=== PATIENT | female | born 1985 | race Caucasian/White ===

== ENCOUNTER 2016-10-15 12:36 | Outpatient (CLI) | payer OTHER ==
--- NOTE | 2016-10-15 13:34 | Non Stress Test Report ---
Non Stress Test Datetime Report Generated by CPN: 10/15/2016 13:29 DEMOGRAPHIC EGA NST: 35.0 INDICATION Indication for Study: Ordered by Provider Indication for Study (NST) Other: Repeat from office for methadone MONITORING Monitor Explained: Monitor Explained; Test Explained; Patient Verbalized Understanding Time on Monitor: 10/15/2016 12:53 Time off Monitor: 10/15/2016 13:25 NST Duration: 32 NST INTERVENTIONS NST Interventions: Reposition Patient Physician Notified NST: C TANG, CNM REVIEWED STRIP BABY A: [id number] BABY A Movement : Present Contraction Frequency : 0 FHR Baseline : 120 Accelerations : 15X15 Accelerations : 15X15 Decelerations : None Decelerations : None Variability : Moderate 6-25bpm Variability : Moderate 6-25bpm NST Review: Meets Criteria for Reactive NST NST Review and Verified By : FARIHA SCHUSTER RN NSEdgar Results: Reactive NST Results: Reactive NST REPORT Report Trigger: Send Report
== END 2016-10-15 13:27 | disposition home or self-care (01) ==
LOC: LC 12:36
PROVIDERS: ATTEND Obstetrics & Gynecology
PROC: 4A1HXCZ Monitoring of Products of Conception, Cardiac Rate, External Approach (ICD-10-PCS; principal; 2016-10-15)
DX: Z34.93 Encounter for supervision of normal pregnancy, unspecified, third trimester (principal); Z36 Encounter for antenatal screening of mother; Z3A.35 35 weeks gestation of pregnancy
CPT/HCPCS: 59025

== ENCOUNTER 2016-10-28 17:54 | Outpatient (CLI) | payer OTHER | END 2016-10-28 18:37 | disposition home or self-care (01) | LOC: LC 17:54 | PROVIDERS: ATTEND Obstetrics & Gynecology | PROC: 4A1HXCZ Monitoring of Products of Conception, Cardiac Rate, External Approach (ICD-10-PCS; principal; 2016-10-28) | DX: O99.323 Drug use complicating pregnancy, third trimester (principal); F11.90 Opioid use, unspecified, uncomplicated; Z3A.36 36 weeks gestation of pregnancy | CPT/HCPCS: 59025 ==

== ENCOUNTER 2016-11-12 07:45 | Inpatient (IN) | payer OTHER ==
[2016-11-11 11:38] LABS: ABSOLUTE BASOPHILS # (AUTO) 0.1 10^3/uL (0.0-0.2); ABSOLUTE EOSINOPHILS # (AUTO) 0.1 10^3/uL (0.0-0.6); ABSOLUTE LYMPHOCYTES (AUTO) 2.6 10^3/uL (0.5-4.7); ABSOLUTE MONOCYTES (AUTO) 0.8 10^3/uL (0.1-1.4); BASOPHILS % (AUTO) 0.6 % (0-2); EOSINOPHILS % (AUTO) 1.1 % (0-6); HEMATOCRIT 36.2 % (36.0-47.0); HEMOGLOBIN 12.1 g/dL (12.0-15.5); HGB HCT DIFFERENCE 0.1; LYMPHOCYTES % (AUTO) 18.9 % (13-45); MEAN CORPUSCULAR HEMOGLOBIN 26.7 pg (27.0-33.4); MEAN CORPUSCULAR HGB CONC 33.3 g/dL (32.0-36.0); MEAN CORPUSCULAR VOLUME 80 fl (80-97); MONOCYTES % (AUTO) 5.9 % (3-13); RED BLOOD COUNT 4.52 10^6/uL (3.72-5.28); RED CELL DISTRIBUTION WIDTH 13.6 % (11.5-14.0); SEGMENTED NEUTROPHILS % (AUTO) 73.5 % (42-78); WHITE BLOOD COUNT 13.6 10^3/uL (4.0-10.5)
[2016-11-11 11:42] LABS: APPEARANCE,URINE CLEAR; BILIRUBIN,URINE NEGATIVE (NEGATIVE); GLUCOSE, URINE NEGATIVE (NEGATIVE); KETONES,URINE NEGATIVE (NEGATIVE); LEUKOCYTE ESTERASE,URINE TRACE (NEGATIVE); NITRITE,URINE NEGATIVE (NEGATIVE); PROTEIN,URINE NEGATIVE (NEGATIVE); URINE SPECIFIC GRAVITY 1.018; UROBILINOGEN,URINE NEGATIVE mg/dL (<2.0)
[2016-11-11 11:57] LABS: URINE BARBITURATES SCREEN NEGATIVE; URINE OPIATES LOW NEGATIVE; URINE PHENCYCLIDINE SCREEN NEGATIVE
[2016-11-11 13:34] LABS: URINE METHADONE SCREEN UNCONFIRMED POSITIVE
[~2016-11-12 07:45] MED LIST: CEFAZOLIN 1 GM/D5W RTU 1 GM/50 ML RTUPB IV PRN; LACTATED RINGERS 1000 ML IV PRN; LIDOCAINE 0.5% INJ-PF (5 MG/ML) 50 ML SDV SUBCUT PRN
[2016-11-12] MEDS ORDERED: OXYTOCIN 10 UNIT/ML VIAL ONE (09:00)
[2016-11-12] MEDS ORDERED: RINGERS SOLUTION,LACTATED 1,000 ML IV PRN ×2 (09:40→12:35)
[2016-11-12] MEDS ORDERED: CEFAZOLIN 1 GM/D5W RTU 1 GM/50 ML RTUPB IV PRN (10:00)
[2016-11-12] MEDS ORDERED: CLINDAMYCIN 900 MG/D5W RTU 50 ML IV ONE (10:02)
[2016-11-12] MEDS ORDERED: RINGERS SOLUTION,LACTATED 1,000 ML IV ONE (10:30)
[2016-11-12] MEDS ORDERED: FENTANYL CITRATE INJ/PF 100 MCG/2 ML AMPUL IV PRN ×3 (10:34)
[2016-11-12] MEDS ORDERED: MEPERIDINE HCL/PF INJ 25 MG/1 ML DISP.SYRIN IV PRN (10:34)
[2016-11-12] MEDS ORDERED: OXYCODONE-ACETAMINOPHEN 5-325 MG TABLET PO PRN ×3 (10:34→12:11)
[2016-11-12] MEDS ORDERED: PROMETHAZINE HCL INJ 25 MG/1 ML VIAL IV PRN (10:34)
[2016-11-12] MEDS ORDERED: DIPHENHYDRAMINE HCL 50 MG/ML VIAL IV PRN (10:34)
[2016-11-12] MEDS ORDERED: MORPHINE SULFATE 10 MG/ML INJ IV PRN (10:34)
[2016-11-12] MEDS ORDERED: ACETAMINOPHEN 100 ML IV ONE (11:35)
[2016-11-12] MEDS: FENTANYL CITRATE INJ/PF 100 MCG/2 ML AMPUL ONE ×2 (11:47→11:53)
[2016-11-12] MEDS ORDERED: KETOROLAC TROMETHAMINE INJ/PF 30 MG/1 ML SDV ONE (11:55)
[2016-11-12] MEDS ORDERED: ACETAMINOPHEN 100 ML IV SCH (12:00)
[2016-11-12] MEDS ORDERED: ACETAMINOPHEN 325 MG TABLET PO PRN (12:11)
[2016-11-12] MEDS ORDERED: OXYTOCIN/NORMAL SALINE 20 UNIT/1,000 ML RTUINJ INJ PRN (12:11)
[2016-11-12] MEDS ORDERED: MEASLES,MUMPS&RUBELLA VACC/PF 0.5 ML VIAL SUBCUT PRN (12:11)
[2016-11-12] MEDS ORDERED: SIMETHICONE 80 MG TAB.CHEW PO PRN (12:11)
[2016-11-12] MEDS ORDERED: PROMETHAZINE HCL INJ 25 MG/1 ML VIAL IM PRN (12:11)
[2016-11-12] MEDS ORDERED: DIPH/PERTUSS(ACELL)/TETANUS VAC/PF 0.5 ML SYR (>=10YO) IM PRN (12:11)
[2016-11-12] MEDS: HYDROMORPHONE HCL INJ/PF 2 MG/ML AMPULE IV PRN ×3 (13:53→22:15)
[2016-11-12] MEDS: DOCUSATE SODIUM 100 MG CAPSULE PO SCH (18:44)
[2016-11-12] MEDS: KETOROLAC TROMETHAMINE INJ/PF 30 MG/1 ML SDV IV SCH (20:12)
[2016-11-13] MEDS: OXYCODONE-ACETAMINOPHEN 5-325 MG TABLET PO PRN ×2 (02:42→17:31)
[2016-11-13] MEDS: KETOROLAC TROMETHAMINE INJ/PF 30 MG/1 ML SDV IV SCH (03:44)
[2016-11-13 06:16] LABS: HEMATOCRIT 32.8 % (36.0-47.0); HEMOGLOBIN 11.2 g/dL (12.0-15.5); HGB HCT DIFFERENCE 0.8; MEAN CORPUSCULAR HEMOGLOBIN 27.4 pg (27.0-33.4); MEAN CORPUSCULAR VOLUME 80 fl (80-97); RED BLOOD COUNT 4.08 10^6/uL (3.72-5.28); RED CELL DISTRIBUTION WIDTH 13.6 % (11.5-14.0); WHITE BLOOD COUNT 7.3 10^3/uL (4.0-10.5)
[2016-11-13] MEDS: METHADONE 10 MG/ML PO SCH (08:04)
[2016-11-13] MEDS ORDERED: PRENATAL VITAMIN W-O CA NO5/FE FUMARATE/FA CAPSULE PO SCH (10:00)
--- NOTE | 2016-11-13 11:48 | PDOC PROGRESS REPORT ---
Subjective-OB Subjective: Post Delivery Day: 31 year old. Denies any needs at this time. Pt doing well, no concerns. She reports light bleeding, regular diet, +flatus and voiding without difficulty. Physical Exam (OB) Vital Signs: Temp Pulse Resp BP Pulse Ox 98.1 F 87 17 104/54 L 100 11/13/16 07:52 11/13/16 07:52 11/13/16 07:52 11/13/16 07:52 11/13/16 07:52 Intake & Output 11/12/16 11/13/16 11/14/16 06:59 06:59 06:59 Intake Total 3000 Output Total 2200 Balance 800 Weight 90.72 kg 86.183 kg - Dressing Removed: Yes Incision: Dressing, Well Approximated Closure Type: medipore - Lochia Lochia Amount: Scant < 10 ml Lochia Color: Rubra/Red - Abdomen Description: Tender, Soft Hernia Present: No Fundal Description: Firm, Midline Fundal Height: u/u - u/2 Objective-Diagnostic Laboratory: 11/13/16 06:03 11/13/16 06:03 WBC 7.3 RBC 4.08 Hgb 11.2 L Hct 32.8 L MCV 80 MCH 27.4 MCHC 34.0 RDW 13.6 Plt Count 244 Assessment and Plan(PN) - Assessment and Plan (1) delivery delivered Is this a current diagnosis for this admission?: Yes - Time Spent with Patient Time with patient: Less than 15 minutes Medications reviewed and adjusted accordingly: Yes - Disposition Anticipated Discharge: Home Within: within 24 hours
[2016-11-13] MEDS: IBUPROFEN 800 MG TABLET PO SCH ×2 (14:36→21:18)
[2016-11-13] MEDS: DOCUSATE SODIUM 100 MG CAPSULE PO SCH (17:31)
[2016-11-14] MEDS: IBUPROFEN 800 MG TABLET PO SCH ×2 (02:02→09:41)
[2016-11-14] MEDS: OXYCODONE-ACETAMINOPHEN 5-325 MG TABLET PO PRN (05:34)
[2016-11-14 08:04] VITALS: BP 92/52
[2016-11-14] MEDS: METHADONE 10 MG/ML PO SCH (08:39)
[2016-11-14] MEDS: DOCUSATE SODIUM 100 MG CAPSULE PO SCH (09:40)
--- NOTE | 2016-11-14 11:25 | PDOC PROGRESS REPORT ---
Subjective-OB Subjective: Post Delivery Day: 31 year old. Denies any needs at this time. Ready to go home. Physical Exam (OB) Vital Signs: Temp Pulse Resp BP Pulse Ox 97.8 F 59 L 16 92/52 L 98 11/14/16 08:09 11/14/16 08:09 11/14/16 08:09 11/14/16 08:09 11/14/16 08:09 Intake & Output 11/13/16 11/14/16 11/15/16 06:59 06:59 06:59 Intake Total 3000 Output Total 2200 Balance 800 Weight 86.183 kg - Dressing Removed: No Incision: Dressing Closure Type: medipore - Lochia Lochia Amount: Scant < 10 ml Lochia Color: Rubra/Red - Abdomen Description: Soft, Round Hernia Present: No Bowel Sounds: Normoactive Flatus Presence: Present Stool: Yes Fundal Description: Firm, Midline Fundal Height: u/u - u/2 Objective-Diagnostic Laboratory: 11/13/16 06:03 Assessment and Plan(PN) - Time Spent with Patient Medications reviewed and adjusted accordingly: Yes - Disposition Anticipated Discharge: Home
--- NOTE | 2016-11-14 11:34 | PDOC DISCHARGE SUMMARY ---
Final Diagnosis Discharge Date: 11/14/16 - Final Diagnosis (1) Abnormal AFP screen Is this a current diagnosis for this admission?: Yes (2) delivery delivered Is this a current diagnosis for this admission?: Yes (3) Methadone dependence Is this a current diagnosis for this admission?: Yes (4) Is this a current diagnosis for this admission?: Yes (5) Smoker Is this a current diagnosis for this admission?: Yes Discharge Data - Discharge Medication Home Medications: Methadone HCl [Methadone Oral Soln 1Mg/ml 30 ml Bottle] 117 mg PO DAILY Pnv No.122/Iron/Folic Acid [ Multi Tablet] 1 tab PO DAILY 10/28/16 Ibuprofen [Motrin 800 mg Tablet] 800 mg PO Q6A #30 tablet 11/14/16 Gestational Age: 39 wks Reason(s) for Admission: Ceasarean Section-Repeat Procedures: Ultrasound Intrapartum Procedure(s): : Low Cervical, Transverse - [place] Data Baby 1 Male at 1 minute: 5 at 5 minutes: 9 Weight: 2.835 kg Home with Mother: Yes Complications: No - Diagnosis Test Laboratory: Temp Pulse Resp BP Pulse Ox 97.8 F 59 L 16 92/52 L 98 11/14/16 08:09 11/14/16 08:09 11/14/16 08:09 11/14/16 08:09 11/14/16 08:09 11/11/16 11/11/16 11/13/16 10:30 10:40 06:03 RBC 4.52 4.08 Hgb 12.1 11.2 L Hct 36.2 32.8 L Urine Opiates Screen NEGATIVE - Discharge information/Instructions Discharge Activity: Activity As Tolerated, Balance Activity w/Rest, No Lifting Over 10 Pounds, No Lifting/Push/Pulling, Non-Ambulatory Child, Pelvic Rest, Slowly Increase Activity Discharge Diet: Regular Disposition: HOME, SELF-CARE Follow up with: [facility] in: 1, Weeks
--- NOTE | 2016-12-31 09:30 | OPERATIVE REPORT E ---
Operative Report NAME: RAN VALENZUELA : 1985 AGE: 31Y DATE OF SURGERY: 11/12/2016 ROOM: 226 PREOPERATIVE DIAGNOSES: 1. A 39 week intrauterine . 2. History of section x2. POSTOPERATIVE DIAGNOSES: 1. A 39 week intrauterine . 2. History of section x2. OPERATION: Repeat low transverse section. SURGEON: Alan Erickson D.O. PARTS CLASSIFIER: None. ANESTHESIA: Spinal. COMPLICATIONS: None. ESTIMATED BLOOD LOSS: 600 mL PATHOLOGY: Placenta. FINDINGS: 1. A viable male at 10:42 a.m. on November 12, 2016. Apgars 8 at one and 9 at five. Weight pending dictation. 2. Normal bilateral fallopian tubes and ovaries. PROCEDURE: The patient was taken to the operating room, where spinal anesthesia was administered. Once this was done, she was placed in the dorsal supine position with leftward tilt upon the operating table. She was then prepped and draped in normal sterile fashion. A scalpel was then used to make a Pfannenstiel skin incision. The skin incision was carried down through subcutaneous tissues to the layer of the fascia. The fascia was incised in the midline. Fascial incision was then extended using Bovie cautery. The superior fascial edge was then grasped with Arden clamps, elevated, and the rectus muscles dissected off sharply and bluntly. Attention was then turned to the inferior fascial edge, which was elevated by Arden clamps and rectus muscles dissected off sharply and bluntly. The rectus muscles were then in the midline, peritoneum identified and entered bluntly with the surgeon's hands. A bladder blade was inserted. A scalpel was then used to make a low transverse hysterotomy incision. The infant was found to be in cephalic position and delivered through this incision without difficulty. The nose and mouth were suctioned. Cord was clamped and cut, and the infant was handed off to the waiting nurses. Cord blood was obtained. The placenta was then manually removed from the uterus. The uterus was exteriorized and cleared of all clots and debris. The hysterotomy incision was then reapproximated using 2 layers of 1-0 Vicryl in a running locking fashion. Following closure with a single layer, excellent hemostasis was noted. The uterus was then returned to the abdomen. The bilateral pericolic gutters were irrigated and cleared of all clots and debris. Again, the hysterotomy incision was reinspected and found to have excellent hemostasis. The rectus muscles were then reapproximated using 1-0 Vicryl interrupted sutures. The fascia was then closed using 1-0 Vicryl in a running non-locking fashion. The subcutaneous space was then made hemostatic using Bovie cautery. The skin was then closed with dissolvable rg, covered with an OpSite, and then with a pressure dressing. At this point in time, the procedure was terminated. All sponge, lap, and needle counts were correct x2. The patient tolerated the procedure well. The patient was taken to the recovery room in stable condition. DICTATING PHYSICIAN: Alan Erickson DO [id number] PHY#: [id number] ID: [id number] JOB#: [id number] ACCT: [id number] cc:Alan Erickson D.O. >
== END 2016-11-14 12:51 | disposition home or self-care (01) | DRG 765 ==
LOC: 2S 08:31
PROVIDERS: ADMIT Obstetrics & Gynecology; ATTEND Obstetrics & Gynecology
PROC: 4A1HXCZ Monitoring of Products of Conception, Cardiac Rate, External Approach (ICD-10-PCS; 2016-11-12)
PROC: 10D00Z1 Extraction of Products of Conception, Low, Open Approach (ICD-10-PCS; principal; 2016-11-12 09:15)
DX: O34.211 Maternal care for low transverse scar from previous cesarean delivery (principal); O99.324 Drug use complicating childbirth; F11.20 Opioid dependence, uncomplicated; O99.334 Smoking (tobacco) complicating childbirth; F17.210 Nicotine dependence, cigarettes, uncomplicated; Z28.82 Immunization not carried out because of caregiver refusal; Z88.0 Allergy status to penicillin; Z3A.39 39 weeks gestation of pregnancy; Z37.0 Single live birth
CPT/HCPCS: 1961; 36415; 59025; 80307; 81001; 85025; 85027; 86850; 86900; 86901; 88307; 94799; J0131; J1170; J1885; J2590; J3010; J7120

== ENCOUNTER 2020-06-01 20:57 | Emergency (ER) | payer OTHER ==
[2020-06-01] MEDS ORDERED: HYDROCODONE/ACETAMINOPHEN 5-325 MG TABLET PO ONE (21:22)
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
[2020-06-01 22:05] LABS: ABSOLUTE EOSINOPHILS # (AUTO) 0.1 10^3/uL (0.0-0.6); ABSOLUTE LYMPHOCYTES (AUTO) 2.7 10^3/uL (0.5-4.7); ABSOLUTE NEUT (AUTO) 15.5 10^3/uL (1.7-8.2); BASOPHILS % (AUTO) 0.2 % (0-2); EOSINOPHILS % (AUTO) 0.5 % (0-6); HEMATOCRIT 43.2 % (36.0-47.0); HEMOGLOBIN 14.7 g/dL (12.0-15.5); LYMPHOCYTES % (AUTO) 13.8 % (13-45); MEAN CORPUSCULAR HEMOGLOBIN 27.6 pg (27.0-33.4); MEAN CORPUSCULAR HGB CONC 33.9 g/dL (32.0-36.0); MEAN CORPUSCULAR VOLUME 81 fl (80-97); MONOCYTES % (AUTO) 5.2 % (3-13); PLATELET COUNT 415 10^3/uL (150-450); RED BLOOD COUNT 5.31 10^6/uL (3.72-5.28); RED CELL DISTRIBUTION WIDTH 14.8 % (11.5-14.0); SEGMENTED NEUTROPHILS % (AUTO) 80.3 % (42-78); TOTAL CELLS COUNTED % (AUTO) 100 %; WHITE BLOOD COUNT 19.3 10^3/uL (4.0-10.5)
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
[2020-06-01 22:16] LABS: ANION GAP 10 (5-19); BLOOD UREA NITROGEN 13 mg/dL (7-20); CALCIUM 9.7 mg/dL (8.4-10.2); CARBON DIOXIDE 28 mmol/L (22-30); CHLORIDE 101 mmol/L (98-107); GLUCOSE 99 mg/dL (75-110); POTASSIUM 4.5 mmol/L (3.6-5.0)
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
[2020-06-01 23:16] VITALS: BP 124/78
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
== END 2020-06-01 23:16 | disposition home or self-care (01) ==
LOC: ER 20:57
DX: M54.2 Cervicalgia (principal); M54.9 Dorsalgia, unspecified; R41.3 Other amnesia; M79.10 Myalgia, unspecified site; R07.9 Chest pain, unspecified; K38.8 Other specified diseases of appendix; V43.52XA Car driver injured in collision with other type car in traffic accident, initial encounter; Z88.0 Allergy status to penicillin
CPT/HCPCS: 36415; 70450; 71260; 72125; 74177; 80048; 85025; 99285